=== PATIENT | female | born 1945 | race Caucasian/White ===

== ENCOUNTER 2018-07-07 14:35 | Outpatient (CLI) | payer MEDICARE ==
--- NOTE | 2018-07-07 14:47 | RAD ---
EXAM: 3 views of the right ankle HISTORY: Ankle pain COMPARISON: None FINDINGS: 3 views of the right ankle shows no evidence of acute fracture or dislocation. Mild to mode rate medial soft tissue swelling is seen. No degenerative changes are present. IMPRESSION: No evidence of acute osseous abnormality.
== END 2018-07-07 14:36 | disposition home or self-care (01) ==
LOC: RAD-FRANK 14:35
PROVIDERS: ATTEND Obstetrics & Gynecology
DX: M25.571 Pain in right ankle and joints of right foot (principal)

== ENCOUNTER 2018-08-29 12:45 | Outpatient (CLI) | payer MEDICARE ==
--- NOTE | 2018-08-29 15:14 | MRI ---
MRI OF THE RIGHT ANKLE WITHOUT CONTRAST: INDICATION: Edema and concern for posterior tibial tendon tear. COMPARISON: Radiographs of the right ankle dated 07/07/2018. FINDINGS: There is thinning of the ATFL suspicious for sequela of a partial thickness ATFL tear. The calcaneofi bular and posterior talofibular ligament are intact. The syndesmotic ligaments are intact. The deltoid ligament is intact. The spring ligament appears intact. There is a partial-thickness split tear involving the posterior tibialis tendon at the level of the f lexor retinaculum that reconstitutes just distal to the retinaculum. There is severe tendinosis of the posterior tibialis tendon. There is mild posterior tibial tenosynovitis. The FDL and FHL tendons are normal appearing. There is mild tendinosis of the Achilles tendon. There is a partial-thickness split tear involving the peroneus brevis tendon at the level of the later retinacul um and reconstitutes at the level of the calcaneal head. Mild tenosynovitis is seen involving the peroneal tendons. There is circumferential edema involving the soft tissues of the ankle. Visualized Lisfranc ligament is intact. No osteochondral lesion is seen involving the talar dome. There is enthesopathic change off the posterior and plantar calcaneus. Sinus tarsi has a normal signal intensity. IMPRESSION: 1. Severe tendinosis of the posterior tibialis tendon with a partial-thickness split tear and mild te nosynovitis. 2. Partial-thickness split tear of the peroneal brevis tendon with mild tenosynovitis. 3. Mild Achilles tendinosis. 4. 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 5. Circumferential soft tissue edema of the ankle. Transcribed Date/Time: 08/29/2018 3:20 PM
== END 2018-08-29 12:46 | disposition home or self-care (01) ==
LOC: TBSIIMAG 12:45
DX: S86.111D Strain of other muscle(s) and tendon(s) of posterior muscle group at lower leg level, right leg, subsequent encounter (principal); M65.9 Synovitis and tenosynovitis, unspecified; M76.821 Posterior tibial tendinitis, right leg; M76.61 Achilles tendinitis, right leg